=== PATIENT | female | born 1945 ===

== ENCOUNTER → 2023-02-09 12:38 | Outpatient (REF) | payer OTHER, SELFPAY ==
--- NOTE | 2023-01-25 08:39 | CM ---
Patient is scheduled for an elective R Reverse TSA on 03/01/23. Spoke with patient prior to surgery. Introduced role of Orthopedic Navigator. Patient reports that she lives with her significant other in a one story home. There is one step to enter.
Currently she functions independently. He has a cane and crutches. He has never had VN services. PCP is Dr. Rohit Dorado.
Discussed orthopedic program and post surgical plans. Reviewed anticipated length of stay and assistance that he may need at discharge. Explained that goal is for him to return home at discharge. Also reviewed MD follow up and transition to
outpatient therapy. Patient is in agreement with tentative plan and states that his will be home with him and can assist if needed.
Patient will complete online education.
Plan: Orthopedic Navigator will be involved in the care of patient after surgery and will reassess discharge needs at that time.
--- NOTE | 2023-01-25 08:44 | CM ---
Patient is scheduled for an elective R Reverse TSA on 03/01/23. Spoke with patient prior to surgery. Introduced role of Orthopedic Navigator. Patient reports that she lives with her significant other in a one story home. There is one step to enter.
Currently she functions independently. She has crutches and a sling. She has had VN services in the past. PCP is Omi Thibodeaux.
Discussed orthopedic program and post surgical plans. Reviewed anticipated length of stay and assistance that she may need at discharge. Explained that goal is for her to return home at discharge. Also reviewed MD follow up and transition to
outpatient therapy. Patient is in agreement with tentative plan and states that her significant other will be home with her and can assist if needed.
Patient will complete online education.
Plan: Orthopedic Navigator will be involved in the care of patient after surgery and will reassess discharge needs at that time.
[2023-02-09 10:43] LABS: Hematocrit 36.9 % (37.0-47.0); Mean Corp Hgb Conc. 29.8 g/dL (33.0-37.0); Mean Corpuscular Hgb 20.2 pg (27.0-31.0); Mean Corpuscular Volume 67.8 fL (81.0-99.0); Mean Platelet Volume 10.3 fL (7.4-10.4); Platelet Count 288 10^3/uL (130-400); Red Blood Cell Count 5.44 10^6/uL (4.20-5.40); Red Cell Dist. Width 17.7 % (11.5-14.5); White Blood Cell Count 5.2 10^3/uL (4.8-10.8)
[2023-02-09 10:49] VITALS: BMI 28.5
[2023-02-09 11:14] LABS: ALT (SGPT) 46 U/L (0-35); AST (SGOT) 41 U/L (14-36); Albumin 3.6 g/dl (3.5-5.0); Alkaline Phosphatase 90 U/L (38-126); Blood Urea Nitrogen 27 mg/dl (7-17); Calcium 9.1 mg/dl (8.4-10.2); Carbon Dioxide 27 mmol/L (22-30); Chloride 104 mmol/L (98-107); Estimated Creatinine Clearance 46 ml/min; Glucose 82 mg/dl (70-99); Potassium 4.6 mmol/L (3.5-5.1); Sodium 139 mmol/L (135-145); Total Bilirubin 0.5 mg/dl (0.2-1.3); Total Protein 6.3 g/dl (6.3-8.2); eGFR > 60.00
[2023-02-09 11:47] LABS: Glycohemoglobin (HgbA1c) 6.2 % (4.0-5.6)
[2023-02-09 15:49] VITALS: BMI 28.5
== END ==
LOC: SDSPAT 12:38
PROVIDERS: ATTENDING PHYSICIAN Orthopaedic Surgery Hand Surgery; FAMILY PHYSICIAN Family Medicine
DX: M19.011 Primary osteoarthritis, right shoulder (principal)
CPT/HCPCS: 36415; 80053; 83036; 85027; 86850; 86900; 86901; 87070; 93005

== ENCOUNTER → 2023-08-08 13:00 | Outpatient (REF) | payer OTHER, SELFPAY ==
--- NOTE | 2023-08-01 09:04 | CM ---
Patient is scheduled for an elective R Reverse TSA on 08/16/23. Spoke with patient prior to surgery. Introduced role of Orthopedic Navigator. Patient reports that she lives with her significant other in a one story home. There is one step to enter.
Currently she functions independently. She has crutches and a sling. She has had VN services in the past. PCP is Omi Thibodeaux.
Discussed orthopedic program and post surgical plans. Reviewed anticipated length of stay and assistance that she may need at discharge. Explained that goal is for her to return home at discharge. Also reviewed MD follow up and transition to
outpatient therapy. Patient is in agreement with tentative plan and states that her significant other will be home with her and can assist if needed. Her daughter will also be staying with her.
Patient will complete online education.
Plan: Orthopedic Navigator will be involved in the care of patient after surgery and will reassess discharge needs at that time.
[2023-08-08 12:52] VITALS: BMI 26.8
[2023-08-08 14:03] LABS: Hematocrit 37.1 % (37.0-47.0); Hemoglobin 11.2 g/dL (12.0-16.0); Mean Corp Hgb Conc. 30.2 g/dL (33.0-37.0); Mean Corpuscular Hgb 19.9 pg (27.0-31.0); Mean Corpuscular Volume 65.8 fL (81.0-99.0); Mean Platelet Volume 10.8 fL (7.4-10.4); Platelet Count 238 10^3/uL (130-400); Red Blood Cell Count 5.64 10^6/uL (4.20-5.40); Red Cell Dist. Width 17.4 % (11.5-14.5); White Blood Cell Count 5.9 10^3/uL (4.8-10.8)
[2023-08-08 14:58] LABS: ALT (SGPT) 88 U/L (0-35); AST (SGOT) 59 U/L (14-36); Albumin 4.1 g/dl (3.5-5.0); Alkaline Phosphatase 137 U/L (38-126); Blood Urea Nitrogen 22 mg/dl (7-17); Calcium 9.4 mg/dl (8.4-10.2); Carbon Dioxide 26 mmol/L (22-30); Chloride 105 mmol/L (98-107); Estimated Creatinine Clearance 46 ml/min; Glucose 76 mg/dl (70-99); Potassium 5.4 mmol/L (3.5-5.1); Sodium 138 mmol/L (135-145); Total Bilirubin 0.5 mg/dl (0.2-1.3); Total Protein 7.2 g/dl (6.3-8.2); eGFR > 60.00
[2023-08-09 09:57] LABS: Glycohemoglobin (HgbA1c) 6.1 % (4.0-5.6)
== END ==
LOC: SDSPAT 13:00
PROVIDERS: ATTENDING PHYSICIAN Orthopaedic Surgery Hand Surgery; FAMILY PHYSICIAN Family Medicine; OTHER PHYSICIAN Internal Medicine Cardiovascular Disease
DX: M75.121 Complete rotator cuff tear or rupture of right shoulder, not specified as traumatic (principal); M65.4 Radial styloid tenosynovitis [de Quervain]; Z01.818 Encounter for other preprocedural examination
CPT/HCPCS: 36415; 80053; 83036; 85027; 86850; 86900; 86901; 87070

== ENCOUNTER 2023-09-26 06:44 | Day surgery (SDC) | payer OTHER, SELFPAY ==
[2023-09-14 14:30] VITALS: BMI 26.9
[2023-09-14 14:55] LABS: % Basophils 0.6 % (0-2); % Eosinophils 1.6 % (0-6); % Immature Granulocytes 0.2 % (0-0.5); % Lymphocytes 46.2 % (20.5-51.1); % Monocytes 11.4 % (1.7-9.3); Absolute Eosinophils 0.1 10^3/uL (0-0.7); Absolute Lymphocytes 2.3 10^3/uL (1.2-3.4); Absolute Monocytes 0.6 10^3/uL (0.1-0.6); Hematocrit 37.5 % (37.0-47.0); Hemoglobin 11.2 g/dL (12.0-16.0); Mean Corp Hgb Conc. 29.9 g/dL (33.0-37.0); Mean Corpuscular Hgb 19.8 pg (27.0-31.0); Mean Corpuscular Volume 66.3 fL (81.0-99.0); Mean Platelet Volume 10.3 fL (7.4-10.4); Nucleated Red Blood Cells % 0 %; Platelet Count 254 10^3/uL (130-400); Red Blood Cell Count 5.66 10^6/uL (4.20-5.40); Red Cell Dist. Width 18.3 % (11.5-14.5); White Blood Cell Count 5.1 10^3/uL (4.8-10.8)
[2023-09-14 15:20] LABS: AST (SGOT) 54 U/L (14-36); Albumin 3.9 g/dl (3.5-5.0); Blood Urea Nitrogen 32 mg/dl (7-17); Calcium 9.4 mg/dl (8.4-10.2); Carbon Dioxide 26 mmol/L (22-30); Estimated Creatinine Clearance 36 ml/min; Glucose 80 mg/dl (70-99); Potassium 5.4 mmol/L (3.5-5.1); Total Bilirubin 0.4 mg/dl (0.2-1.3); Total Protein 6.8 g/dl (6.3-8.2); eGFR > 60.00
[2023-09-14 15:27] LABS: ALT (SGPT) 82 U/L (0-35); Alkaline Phosphatase 133 U/L (38-126); Chloride 105 mmol/L (98-107); Sodium 137 mmol/L (135-145)
[2023-09-15 09:11] LABS: Glycohemoglobin (HgbA1c) 6.1 % (4.0-5.6)
[2023-09-26] VITALS (9 sets, daily range): BP systolic 141–182; BP diastolic 2–112
[2023-09-26] MEDS: NORMOSOL-R 1000 IV (12:20)
[2023-09-26] MEDS: TYLENOL 1000 MG PO (12:27)
[2023-09-26] MEDS: CELEBREX 200 MG PO (12:27)
--- NOTE | 2023-09-26 12:45 | PTCARENOTE ---
Dr. Lester was made aware that patient ate 3 cheerios this am.
[2023-09-26] MEDS: ANCEF 5 IV (19:01)
== END 2023-09-26 19:25 | disposition home or self-care (01) ==
LOC: SDS 06:44
PROVIDERS: ATTENDING PHYSICIAN Orthopaedic Surgery Hand Surgery; FAMILY PHYSICIAN Family Medicine; OTHER PHYSICIAN Specialist
DX: M19.011 Primary osteoarthritis, right shoulder (principal); M75.121 Complete rotator cuff tear or rupture of right shoulder, not specified as traumatic; M65.4 Radial styloid tenosynovitis [de Quervain]; Z96.611 Presence of right artificial shoulder joint
CPT/HCPCS: 23472; 36415; 73020; 80053; 83036; 85025; 86850; 86900; 86901; 87070; C1713; C1776